=== PATIENT | female | born 1960 | race Caucasian/White ===

== ENCOUNTER 2022-11-09 12:30 | Inpatient (IN) | payer OTHER, SELFPAY ==
[2022-11-09] VITALS (18 sets, daily range): BP systolic 99–136; BP diastolic 43–70; PULSE 72–104; RESP 14–22; TEMP 36.2–36.8; O2SAT 97–100; BMI 19.3; BMI 23.1
--- NOTE | 2022-11-09 12:56 | EKG12_ITS ---
Test Reason : REPEAT CP Blood Pressure : / mmHG Vent. Rate : 085 BPM Atrial Rate : 085 BPM P-R Int : 126 ms QRS Dur : 078 ms QT Int : 354 ms P-R-T Axes : 073 063 055 degrees QTc Int : 421 ms Normal sinus rhythm Septal infarct , age undetermined Abnormal ECG Confirmed by UDAY MENDEZ, JULIANE ([id number]), technical writer and editor GELA ROSE ([id number]) on 11/10/2022 10:01:15 AM Referred By: Confirmed By:JULIANE FRYE MD
--- NOTE | 2022-11-09 12:59 | ED.VIS.CHEST ---
HPI <BRANDON Valdivia - Last Filed: 11/09/22 16:34> History of Present Illness Chief Complaint: Chest Pain Narrative Narrative: Patient presenting today with chest discomfort that she describes as a squeezing sensation that she has had intermittently for the past 2 months. She reports that the discomfort is brought on with exertion and she feels she does not have to walk very far before the discomfort begins. She will also feel short of breath when it occurs. She has not seen her PCP for this issue and has not had any recent cardiac work-ups. She reports a history of a known heart murmur. She had a syncopal episode 2 weeks ago while she was sitting in the kitchen making her son's lunch and does not think that she had any chest pain prior to that event. She called her PCP and he encouraged her to come into the ED, but she waited until today to do this. She reports that the discomfort will occasionally happen at rest but she attributes this to when she is feeling stressed. Both her brother and sister have had heart attacks in their 40s and 50s. PMH includes hyperlipidemia for which she is not on medication for. She denies a history of blood clots, recent surgery/procedures, recent immobilization. PFSH <BRANDON Valdivia - Last Filed: 11/09/22 16:34> PFSH Medical History Hyperlipidemia Murmur Home Medications capsicum (cayenne) 447 mg capsule 475 mg PO DAILY SUPPLEMENT 11/09/22 [History Last Taken 11/09/22] chlorophyll copper complex 10 mg tablet 40 mg PO BID 11/09/22 [History Last Taken 11/09/22] multivitamin (Daily Multi-Vitamin tablet) 1 tab PO DAILY HEALTH MAINTENANCE 11/09/22 [History Last Taken 11/09/22] omega-3 fatty acids-fish oil 684 mg-1,200 mg capsule,delayed release 1 cap PO DAILY SUPPLEMENT 11/09/22 [History Last Taken 11/09/22] Allergy/AdvReac Type Severity Reaction Status Date / Time No Known Allergies Allergy Verified 11/09/22 12:32 Social History household members: spouse and children housing: house Smoking Status: Never smoker ROS <BRANDON Valdivia - Last Filed: 11/09/22 16:34> ROS ED Constitutional Constitutional ED: Denies chills or fever(s) Eyes Eyes: Denies change in vision Cardiovascular Cardiovascular: Reports chest pain; Denies palpitations Respiratory/Chest Respiratory/Chest: Reports dyspnea on exertion; Denies cough or dyspnea Gastrointestinal Gastrointestinal: Denies abdominal pain, constipation, diarrhea, nausea or vomiting Genitourinary Genitourinary ED: Denies dysuria, hematuria or urinary urgency Musculoskeletal Musculoskeletal: Denies arthralgias or myalgias Integumentary Denies abscess, Abrasions or rash Neurologic Neurologic: Denies dizziness, paresthesias or weakness Psychiatric Psychiatric: Reports anxiety; Denies depression, suicidal ideation or suicidal thoughts Allergic/Immunologic Allergic/Immunologic ED: Denies lip swelling, mouth swelling or urticaria EXAM <BRANDON Valdivia - Last Filed: 11/09/22 16:34> Physical Exam Const Vital Signs: 11/09/22 12:31 11/09/22 12:48 11/09/22 13:24 Temperature 97.3 F L Temperature Source Temporal Pulse Rate 99 92 Respiratory Rate 14 20 H Respiratory Effort Normal Respiratory Depth Respiratory Pattern Blood Pressure 123/70 H Blood Pressure Mean 87 Blood Pressure Source Blood Pressure Position Blood Pressure Location Pulse Ox 100 99 Oxygen Delivery Method 11/09/22 13:30 11/09/22 13:40 11/09/22 13:45 Temperature Temperature Source Pulse Rate 90 81 104 H Respiratory Rate 22 H 19 H 19 H Respiratory Effort Respiratory Depth Respiratory Pattern Blood Pressure 117/45 L 124/61 H Blood Pressure Mean 64 81 Blood Pressure Source Blood Pressure Position Blood Pressure Location Pulse Ox 99 98 97 Oxygen Delivery Method 11/09/22 13:50 11/09/22 14:00 11/09/22 14:13 Temperature Temperature Source Pulse Rate 94 84 99 Respiratory Rate 17 18 18 Respiratory Effort Respiratory Depth Respiratory Pattern Blood Pressure 115/43 L 115/43 L Blood Pressure Mean 65 67 Blood Pressure Source Blood Pressure Position Blood Pressure Location Pulse Ox 99 100 100 Oxygen Delivery Method Room Air 11/09/22 15:33 11/09/22 16:55 11/09/22 17:10 Temperature 97.3 F L 97.2 F L Temperature Source Temporal Temporal Pulse Rate 88 87 91 Respiratory Rate 18 16 16 Respiratory Effort Respiratory Depth Respiratory Pattern Blood Pressure 136/63 H 117/44 L 112/54 L Blood Pressure Mean 87 68 73 Blood Pressure Source Monitor Monitor Blood Pressure Position Semi-Fowlers Semi-Fowlers Blood Pressure Location Left Arm Left Arm Pulse Ox 99 100 100 Oxygen Delivery Method Room Air Room Air Room Air 11/09/22 17:35 11/09/22 17:25 11/09/22 17:40 Temperature Temperature Source Pulse Rate 85 72 Respiratory Rate 16 16 Respiratory Effort Normal Non-Labored Respiratory Depth Normal Respiratory Pattern Normal Blood Pressure 107/47 L 107/44 L Blood Pressure Mean 67 65 Blood Pressure Source Monitor Monitor Blood Pressure Position Semi-Fowlers Semi-Fowlers Blood Pressure Location Left Arm Left Arm Pulse Ox 100 97 Oxygen Delivery Method Room Air Room Air Room Air Positive well nourished, well developed and no apparent distress General Appearance ED: well developed HEENT Reports normocephalic and head/scalp atraumatic Mouth ED: Yes moist mucous membranes normal Eyes PERRL and EOMs intact bilaterally Neck full ROM and supple Chest Wall inspection of chest normal Resp normal respiratory effort and clear to auscultation bilaterally Cardio regular rate and regular rhythm GI soft to palpation, non-tender, non-distended and no masses Back/Spine normal ROM and normal to inspection Extremity normal to inspection and full ROM Neuro oriented x3, CN's II-XII intact bilaterally, moves all extremities, no focal motor deficits and no sensory deficits noted Sensorium / Orientation: awake and alert Psych mental status grossly normal and thought process normal Skin no rashes or lesions noted and no wounds <Dr. Natalie Amaya, DO - Last Filed: 11/09/22 22:21> Physical Exam Const Vital Signs: 11/09/22 12:31 11/09/22 12:48 11/09/22 13:24 Temperature 97.3 F L Temperature Source Temporal Pulse Rate 99 92 Respiratory Rate 14 20 H Respiratory Effort Normal Respiratory Depth Respiratory Pattern Blood Pressure 123/70 H Blood Pressure Mean 87 Blood Pressure Source Blood Pressure Position Blood Pressure Location Pulse Ox 100 99 Oxygen Delivery Method 11/09/22 13:30 11/09/22 13:40 11/09/22 13:45 Temperature Temperature Source Pulse Rate 90 81 104 H Respiratory Rate 22 H 19 H 19 H Respiratory Effort Respiratory Depth Respiratory Pattern Blood Pressure 117/45 L 124/61 H Blood Pressure Mean 64 81 Blood Pressure Source Blood Pressure Position Blood Pressure Location Pulse Ox 99 98 97 Oxygen Delivery Method 11/09/22 13:50 11/09/22 14:00 11/09/22 14:13 Temperature Temperature Source Pulse Rate 94 84 99 Respiratory Rate 17 18 18 Respiratory Effort Respiratory Depth Respiratory Pattern Blood Pressure 115/43 L 115/43 L Blood Pressure Mean 65 67 Blood Pressure Source Blood Pressure Position Blood Pressure Location Pulse Ox 99 100 100 Oxygen Delivery Method Room Air 11/09/22 15:33 11/09/22 16:55 11/09/22 17:10 Temperature 97.3 F L 97.2 F L Temperature Source Temporal Temporal Pulse Rate 88 87 91 Respiratory Rate 18 16 16 Respiratory Effort Respiratory Depth Respiratory Pattern Blood Pressure 136/63 H 117/44 L 112/54 L Blood Pressure Mean 87 68 73 Blood Pressure Source Monitor Monitor Blood Pressure Position Semi-Fowlers Semi-Fowlers Blood Pressure Location Left Arm Left Arm Pulse Ox 99 100 100 Oxygen Delivery Method Room Air Room Air Room Air 11/09/22 17:35 11/09/22 17:25 11/09/22 17:40 Temperature Temperature Source Pulse Rate 85 72 Respiratory Rate 16 16 Respiratory Effort Normal Non-Labored Respiratory Depth Normal Respiratory Pattern Normal Blood Pressure 107/47 L 107/44 L Blood Pressure Mean 67 65 Blood Pressure Source Monitor Monitor Blood Pressure Position Semi-Fowlers Semi-Fowlers Blood Pressure Location Left Arm Left Arm Pulse Ox 100 97 Oxygen Delivery Method Room Air Room Air Room Air [facility] <BRANDON Valdivia - Last Filed: 11/09/22 16:34> [facility] Narrative Medical decision making narrative: Patient presenting today due to unstable angina that she has had for the past 2 months. She did report that while walking into the ED from the parking lot she had chest tightness but attributes that to her anxiety. She is well-appearing and in no acute distress. Vitals are unremarkable. Her history is very concerning and she has significant family history of coronary artery disease. I did order aspirin for patient but she declines this, stating that she takes cayenne pepper supplements and that will thin her blood. Labs will be obtained to rule out leukocytosis, anemia, electrolyte abnormality, and ACS. Patient does have an elevated troponin, EKG does not show ST elevation but does show signs of cardiac ischemia inferiorly. Attending physician was able to talk patient into taking aspirin, heparin was ordered for patient but she refuses to take this. Dr. Nelson was consulted and evaluated patient. He reports that she is willing to have a heart catheterization but does not want any stent placement at this time. She will be taken for this procedure today in stable condition and is comfortable with plan. Lab Data Attestation: I reviewed the patient's lab results. Labs: Laboratory Results - last 24 hr 11/09/22 12:56 WBC 6.3 RBC 4.10 L Hgb 12.4 Hct 37.9 MCV 92.4 MCH 30.2 MCHC 32.7 RDW Std Deviation 46.2 H RDW Coeff of Britta 13.8 Plt Count 108 L MPV 14.7 H Immature Gran % (Auto) 0.200 Neut % (Auto) 70.9 H Lymph % (Auto) 17.7 L [place] % (Auto) 9.7 Eos % (Auto) 1.0 Baso % (Auto) 0.5 Absolute Neuts (auto) 4.4 Absolute Lymphs (auto) 1.11 Nucleated RBC % 0 PT 13.4 INR 1.0 APTT 32.5 Sodium 133 L Potassium 3.7 Chloride 98 Carbon Dioxide 30.0 Anion Gap 5 BUN 13 Creatinine 0.68 Estim Creat Clear Calc 59.72 Est GFR (MDRD) Af Amer 113 Est GFR (MDRD) Non-Af 93 BUN/Creatinine Ratio 19.1 Glucose 119 H Calcium 9.2 Troponin I High Sens 420 H* Radiography X-Ray: Read by ED Physician and Read by Radiologist Diagnostic Testing: Clinical Impression(s) from Imaging Studies Chest X-Ray 11/09/22 13:14 IMPRESSION: Minimal degree of dextroscoliosis. Electronically Signed: Kendall Larkin MD at 13:25 EDT , EKG Initial EKG: Comments: 98 bpm, normal sinus rhythm with signs of cardiac ischemia laterally, no ST elevation, reviewed and interpreted by attending ED physician Repeat EKG is unchanged Prior: No Prior <Dr. Natalie Amaya, DO - Last Filed: 11/09/22 22:21> MDM MDM Narrative Medical decision making narrative: Patient presenting today due to unstable angina that she has had for the past 2 months. She did report that while walking into the ED from the parking lot she had chest tightness but attributes that to her anxiety. She is well-appearing and in no acute distress. Vitals are unremarkable. Her history is very concerning and she has significant family history of coronary artery disease. I did order aspirin for patient but she declines this, stating that she takes cayenne pepper supplements and that will thin her blood. Labs will be obtained to rule out leukocytosis, anemia, electrolyte abnormality, and ACS. Patient does have an elevated troponin, EKG does not show ST elevation but does show signs of cardiac ischemia inferiorly. Attending physician was able to talk patient into taking aspirin, heparin was ordered for patient but she refuses to take this. Dr. Nelson was consulted and evaluated patient. He reports that she is willing to have a heart catheterization but does not want any stent placement at this time. She will be taken for this procedure today in stable condition and is comfortable with plan. I have personally performed a face to face assessment of the patient and have reviewed the SHARON Note. I performed a substantive portion of the visit including all aspects of the following. My christine findings include: History is patient is 62-year-old female with recent history of exertional chest pain, mild shortness of breath, syncopal episode 2 weeks ago and now increased chest pain today. Vital signs are normal. Her HPI is highly concerning for unstable angina. On top of that she has a significant family history of coronary artery disease and cardiac even at a young age. EKG does show subtle ST depressions in the inferior leads as well as biphasic T wave abnormalities in V1 and V2, this is concerning for possible multivessel disease. This is not a STEMI. High since he troponin is elevated at 420. Patient is refusing aspirin stating that she does not want to thin her blood too much as she already takes cayenne pepper. Discussed at length with patient that her blood is not too thin and that aspirin can be lifesaving in this scenario. I also explained to her that she is has findings concerning for coronary artery disease/significant narrowing of her coronary artery vessels and she needs blood thinners and likely a cardiac catheterization with stents. Patient states she does not want stents in her body as its not natural and she does not want to take any medicines. Patient counseled that if we do not adequately treat this heart condition there is a chance that she could go on to cardiogenic shock and ultimately from heart failure. She is agreeable now with at least a cardiac catheterization and intraprocedure heparin but still does not want a stent. Is evaluated by Dr. Nelson who also tried to explain the same to the patient. Patient is otherwise acting appropriate at this time I do think to has capacity to make these decisions. Other additions or changes: [None] Lab Data Labs: Laboratory Results - last 24 hr 11/09/22 12:56 WBC 6.3 RBC 4.10 L Hgb 12.4 Hct 37.9 MCV 92.4 MCH 30.2 MCHC 32.7 RDW Std Deviation 46.2 H RDW Coeff of Britta 13.8 Plt Count 108 L MPV 14.7 H Immature Gran % (Auto) 0.200 Neut % (Auto) 70.9 H Lymph % (Auto) 17.7 L [place] % (Auto) 9.7 Eos % (Auto) 1.0 Baso % (Auto) 0.5 Absolute Neuts (auto) 4.4 Absolute Lymphs (auto) 1.11 Nucleated RBC % 0 PT 13.4 INR 1.0 APTT 32.5 Sodium 133 L Potassium 3.7 Chloride 98 Carbon Dioxide 30.0 Anion Gap 5 BUN 13 Creatinine 0.68 Estim Creat Clear Calc 59.72 Est GFR (MDRD) Af Amer 113 Est GFR (MDRD) Non-Af 93 BUN/Creatinine Ratio 19.1 Glucose 119 H Calcium 9.2 Troponin I High Sens 420 H* Radiography Diagnostic Testing: Clinical Impression(s) from Imaging Studies Chest X-Ray 11/09/22 13:14 IMPRESSION: Minimal degree of dextroscoliosis. Electronically Signed: Kendall Larkin MD at 13:25 EDT , <Dr. Natalie Amaya, DO - Last Filed: 11/09/22 22:21> Critical Care Time Critical Care Time: Yes Critical care time (excluding procedures): 30-74 minutes (40), Discussing w/Patient &/or Family/Rn Obgyn, Discussing w/Consultants and Arranging Admission or Transfer Discharge Plan Dx/Rx/DC Orders Clinical Impression: Dyslipidemia, Unstable angina, Non-STEMI (non-ST elevated myocardial infarction) Disposition Disposition: Acute Care Hospital [facility] Discharge Date/Time: 11/09/22 15:35
--- NOTE | 2022-11-09 13:14 | RAD_ITS ---
STUDY: X-RAY CHEST REASON FOR EXAM: Female, 62 years old. 2 month history of chest pressure. TECHNIQUE: Single AP portable view of the chest. COMPARISON: None. FINDINGS: EKG electrodes are seen. The lungs are clear and expanded. There is no demonstrated pleural abnormality. Normal size heart. Normal mediastinum and lynn. Normal visualized pulmonary arteries. There is atherosclerotic calcification of the aortic arch with tortuosity. Minimal degree of dextroscoliosis. Normal visualized ribs, clavicles, and shoulders. There is no demonstrated abnormality of the visualized soft tissue structures of the upper abdomen. RAD/Chest 1 View (Portable) IMPRESSION: Minimal degree of dextroscoliosis. Electronically Signed: Kendall Larkin MD at 13:25 EDT ,
[2022-11-09 13:21] LABS: Absolute Lymphocyte Count 1.11 X10^3/uL (0.83-4.51); Absolute Neutrophil Count 4.4 X10^3/uL (2.0-7.7); Basophil# 0.03 X10^3/uL; Basophil% 0.5 % (0-1); Eosinophil# 0.06 X10^3/uL; Hematocrit 37.9 % (37-47); Hemoglobin 12.4 g/dL (12.0-15.0); Lymphocyte # 1.11 X10^3/ul (0.83-4.51); Lymphocyte % 17.7 % (19-41); Mean Corp Hgb Conc 32.7 g/dL (32-36); Mean Corpuscular Hgb 30.2 pg (27.0-32.0); Mean Corpuscular Volume 92.4 fL (81-99); Mean Platelet Vol. 14.7 fl (6.2-12.0); Monocyte# 0.61 X10^3/uL; Monocyte% 9.7 % (0-10); NRBC Flagged by Analyzer 0 % (0-5); Neutrophil # 4.44 X10^3/uL (2.7-7.7); Neutrophil % 70.9 % (47-70); POSITIVE MORPHOLOGY YES; Platelet Count 108 K/mm3 (150-450); RBC Distribution Width CV 13.8 % (11.6-14.6); RBC Distribution Width SD 46.2 fl (35.1-43.9); White Blood Count 6.3 K/mm3 (4.4-11.0)
[2022-11-09 13:37] LABS: Differential Indicated SCAN CRITERIA MET
[2022-11-09 13:48] LABS: Anion Gap 5 (5-15); BUN 13 mg/dL (7-18); BUN/Creat Ratio 19.1 RATIO (10-20); Calcium,Total 9.2 mg/dL (8.5-10.1); Chloride 98 mmol/L (98-107); Creatinine, Serum 0.68 mg/dL (0.55-1.02); EST Glomerular Filtration Rate 93 mL/min (>60); Est Glom Filt Rate - Afr Amer 113 mL/min (>60); Estimated Creatinine Clearance 59.72 ml/min; Glucose 119 mg/dL (74-106); Potassium 3.7 mmol/L (3.5-5.1); Sodium Level 133 mmol/L (136-145); Troponin-I HS (w/2H Reflex) 420 pg/mL (3.0-54.0)
--- NOTE | 2022-11-09 13:52 | EKG12_ITS ---
Test Reason : CP Blood Pressure : / mmHG Vent. Rate : 098 BPM Atrial Rate : 098 BPM P-R Int : 124 ms QRS Dur : 074 ms QT Int : 342 ms P-R-T Axes : 071 060 057 degrees QTc Int : 436 ms Normal sinus rhythm Septal infarct , age undetermined Abnormal ECG Confirmed by UDAY MENDEZ, JULIANE ([id number]), social media editor GELA ROSE ([id number]) on 11/10/2022 10:01:29 AM Referred By: Confirmed By:JULIANE FRYE MD
[2022-11-09 14:32] LABS: Prothrombin Time (Protime)PT. 13.4 SECONDS (11.7-14.9)
[2022-11-09 14:33] LABS: Partial Thromboplast Time 32.5 Seconds (24.1-36.2)
[2022-11-09] MEDS: Aspirin 81 MG TAB.CHEW 324 MG PO (14:40)
--- NOTE | 2022-11-09 15:07 | ED.RN ---
Dr. Amaya, Dr. Nelson, and this RN discussed with patient plan of care. support provided. Pt decided to take aspirin but is refusing the heparin gtt. Both physicians aware.
[2022-11-09 15:12] LABS: Reflex Troponin-HS? (from REC) Y
--- NOTE | 2022-11-09 15:47 | CON.PCM.CA_ITS ---
Assessment & Plan Assessment/Plan (1) Non-STEMI (non-ST elevated myocardial infarction): PLAN: We will keep the patient on aspirin. We will proceed with coronary angiography. Patient understood the risks and benefits of coronary angiography but wants to discuss options before proceeding with PCI once the angiography is done. I did explain to the patient that if she agrees to proceed with PCI she will have to be on dual antiplatelet therapy for a minimum of 1 year. I also explained to her that she needs to be on a beta-maira and a statin as well. Rest of the management will be based on angiography findings. (2) Dyslipidemia: HPI Consult Data Date of Consult: 11/09/22 HPI Narrative Reason for Consultation: Non-STEMI HPI Narrative: YVETTE OMALLEY, is a 62 F who presents with chest pain. Chest pain is retrosternal, pressure-like, exertional. Patient has been having this on and off for the last 2 months. About 2 weeks back she had a syncopal episode. She apparently called her primary care physician's office and was advised to come to the emergency room. She has significant family history of coronary artery disease. She has history of dyslipidemia with current LDL of 289. She is skeptical of medications and initially refused aspirin even though she presented with non-STEMI. She finally agreed to take aspirin but so far has refused hepa rin. Review of systems: All systems reviewed. All else is negative except that in HPI [facility] Medical History Hyperlipidemia Murmur Home Medications capsicum (cayenne) 447 mg capsule 475 mg PO DAILY SUPPLEMENT 11/09/22 [History Last Taken 11/09/22] chlorophyll copper complex 10 mg tablet 40 mg PO BID 11/09/22 [History Last Taken 11/09/22] multivitamin (Daily Multi-Vitamin tablet) 1 tab PO DAILY HEALTH MAINTENANCE 11/09/22 [History Last Taken 11/09/22] omega-3 fatty acids-fish oil 684 mg-1,200 mg capsule,delayed release 1 cap PO DAILY SUPPLEMENT 11/09/22 [History Last Taken 11/09/22] Allergy/AdvReac Type Severity Reaction Status Date / Time No Known Allergies Allergy Verified 11/09/22 12:32 Social History Smoking Status: Never smoker Physical Exam Const alert and oriented x3 HEENT normocephalic Eyes no scleral icterus Resp normal respiratory effort Cardio regular rate Skin no rashes or lesions noted Risk Stratification Risk Stratification Applicable: No Objective Data Vital Signs: Vital Signs Temp Pulse Resp BP Pulse Ox O2 Del Method 97.3 F L 88 18 136/63 H 99 Room Air 11/09/22 15:33 11/09/22 15:33 11/09/22 15:33 11/09/22 15:33 11/09/22 15:33 11/09/22 15:33 Oxygen Delivery Method Room Air Weight: 96 lb Body Mass Index (BMI) 19.3 Lab / Micro Data 11/09/22 12:56 11/09/22 12:56 Labs: Laboratory Results - last 24 hr 11/09/22 12:56: WBC 6.3, RBC 4.10 L, Hgb 12.4, Hct 37.9, MCV 92.4, MCH 30.2, MCHC 32.7, RDW Std Deviation 46.2 H, RDW Coeff of Britta 13.8, Plt Count 108 L, MPV 14.7 H, Immature Gran % (Auto) 0.200, Neut % (Auto) 70.9 H, Lymph % (Auto) 17.7 L, [place] % (Auto) 9.7, Eos % (Auto) 1.0, Baso % (Auto) 0.5, Absolute Neuts (auto) 4.4, Absolute Lymphs (auto) 1.11, Nucleated RBC % 0, PT 13.4, INR 1.0, APTT 32.5, Sodium 133 L, Potassium 3.7, Chloride 98, Carbon Dioxide 30.0, Anion Gap 5, BUN 13, Creatinine 0.68, Estim Creat Clear Calc 59.72, Est GFR (MDRD) Af Amer 113, Est GFR (MDRD) Non-Af 93, BUN/Creatinine Ratio 19.1, Glucose 119 H, Calcium 9.2, Troponin I High Sens 420 H* Cardiology Labs/Tests 11/09/22 12:56: WBC 6.3, RBC 4.10 L, Hgb 12.4, Hct 37.9, MCV 92.4, MCH 30.2, MCHC 32.7, Plt Count 108 L, MPV 14.7 H, Immature Gran % (Auto) 0.200, Neut % (Auto) 70.9 H, Lymph % (Auto) 17.7 L, [place] % (Auto) 9.7, Eos % (Auto) 1.0, Baso % (Auto) 0.5, Absolute Neuts (auto) 4.4, Nucleated RBC % 0, PT 13.4, INR 1.0, APTT 32.5, Sodium 133 L, Potassium 3.7, Chloride 98, Carbon Dioxide 30.0, Anion Gap 5, BUN 13, Creatinine 0.68, Est GFR (MDRD) Af Amer 113, Est GFR (MDRD) Non- Af 93, BUN/Creatinine Ratio 19.1, Glucose 119 H, Calcium 9.2 Rhythm: EKG: ECHO: Stress Test: Cardiac Cath: PCI: CT Surgery: Holter monitor: EPS: PPM: CXR: Chest CT Scan: Radiography Diagnostic Testing: Radiology Impression Chest X-Ray 11/09/22 13:14 IMPRESSION: Minimal degree of dextroscoliosis. Electronically Signed: Kendall Larkin MD at 13:25 EDT ,
--- NOTE | 2022-11-09 17:15 | CL.D_ITS ---
Patient Name: YVETTE OMALLEY Study Date: 11/09/2022 Performing: Gil Nelson MD Ht: 59 inches 149.86 cm : 1960 Wt: 96.1 lbs 43.54 kg Age: 62 Gender: female BSA: 1.35 PROCEDURE(S) PERFORMED [id number])[facility] CLINICAL PROFILE AND INDICATIONS Indications: ACS <= 24 hrs Heart Failure: None Stress/Imaging Stress/Image Study Performed: No CAD Presentations: Non-STEMI. Symptom onset Date/Time: Time Not Available CONCLUSIONS Severe multivessel coronary artery disease as described. Elevated LVEDP. No significant aortic stenosis. RECOMMENDATIONS Heart team approach to discuss CABG plus or minus AVR versus PCI of the LAD alone. DESCRIPTION OF PROCEDURE The patient arrived to the procedure lab. The risks and benefits of the procedure as well as a full description of our services here and current unavailability of surgical backup were fully explained to the patient and/or their significant other prior to the catheterization. The Timeout was completed, verifying the correct patient and procedure. The patient's procedural site was prepped and draped in the usual fashion. Local anesthetic was given subcutaneously to right radial region with Lidocaine 2%. Using a modified Seldinger technique, arterial access was obtained via the right radial artery, a 6Fr sheath was inserted. Left Coronary Artery selective angiography was performed in multiple views using a 5 Fr. JL3.5 catheter. Right Coronary Artery selective angiography was then performed in multiple views using a 5 Fr. JR 4 catheter. LV to AO pullback pressures were then recorded.The arterial sheath was pulled and a TR Band was applied for hemostasis CORONARY ANGIOGRAPHY DOMINANCE: Right Dominant LEFT HEART ASSESSMENT Patient was not given any sedation as she wanted to discuss angiography findings prior to proceeding with any revascularization. Patient's angiographic findings were discussed with the patient in detail. Patient did not want us to proceed with PCI at this time. She wants to think about whether it is okay for us to transfer her to a facility with CT surgery availability as well. At this point she is very hesitant to restart heparin after the TR band is off as well. Explained the risks and benefits of all the approaches to the patient and family and they understand. LEFT MAIN: 20 % distal Stenosis LEFT ANTERIOR DESCENDING ARTERY: OSTIAL LAD: 99 % Stenosis. DENNIS 1-2 flow in the LAD CIRCUMFLEX ARTERY: MID CIRC: 60-70 % Stenosis OM 1: Proximal - 40 % Stenosis RIGHT CORONARY ARTERY: Severe diffuse disease in the mid and proximal portion. Occluded in the distal portion. Well developed [id number] collaterals noted. VALVE FINDINGS: No Aortic Valve Stenosis COMPLICATIONS No Complications PROCEDURE MEDICATIONS Oxygen: 2 L/min via nasal cannula SUMMARY OF HEMODYNAMIC DATA Time AIR REST ECG 15:50:22 AO 150/49 (47) SA 16:07:07 LV 122/2, 31 16:15:51 LV 124/1, 30 16:15:58 LVp 127/0, 29 16:16:12 AOp 121/47 (77) 16:16:17 Signed By Gil Nelson MD On 11/09/2022 17:14:23 Gil Nelson MD
[2022-11-09] MEDS: 0.9% Normal Saline 1,000 ML 50 ML IV (17:34)
--- NOTE | 2022-11-09 18:22 | PCM.HP.STD ---
[facility] - General General Date of Admission: 11/09/22 Date of Service: 11/09/22 Chief Complaint: Chest pain anginal quality on exertion for 2 months along with shortness of breath. Longtime murmur. HPI Narrative YVETTE OMALLEY, is a 62 F came to ED for chest discomfort/tightness mainly exertional for past 2 months. She states she feels a squeezing sensation anteriorly on walking less than a block which goes away after rest. She denies any radiation to arm neck back but she also feels tightness at epigastric region. She denies dizziness or lightheadedness. She also passed out, syncopal episode about 2 weeks ago while she was sitting in the kitchen making her son's lunch. She was not doing any exertional at that time. She called her PCP and asked her to go to ED. She also has history of murmur for more than 10 years and states it is getting tighter and tighter. She had a stress test more than 10 years ago when she was getting easily fatigued but no chest pain at that time. Stress test was normal at that time. Vitals in the ED reviewed. BP in normal range but heart rate in 90s to low 100s. No hypoxia. Twelve-lead EKG done in ED showed 98 bpm, with T inversion in V1 to V3 leads slight ST depression but no ST elevation. First troponin was high of 120 therefore admitted with a diagnosis of non-STEMI and aspirin 324 mg and started on IV heparin drip Past medical history: Dyslipidemia: Not on medication. Family history: Brother and sister have CO/heart attack in their 40s and 50s. FORMERLY [facility], [facility] Medical History Hyperlipidemia Murmur Home Medications capsicum (cayenne) 447 mg capsule 475 mg PO DAILY SUPPLEMENT 11/09/22 [History Last Taken 11/09/22] chlorophyll copper complex 10 mg tablet 40 mg PO BID 11/09/22 [History Last Taken 11/09/22] multivitamin (Daily Multi-Vitamin tablet) 1 tab PO DAILY HEALTH MAINTENANCE 11/09/22 [History Last Taken 11/09/22] omega-3 fatty acids-fish oil 684 mg-1,200 mg capsule,delayed release 1 cap PO DAILY SUPPLEMENT 11/09/22 [History Last Taken 11/09/22] Allergy/AdvReac Type Severity Reaction Status Date / Time No Known Allergies Allergy Verified 11/09/22 12:32 Social History household members: spouse and children housing: house Smoking Status: Never smoker ROS ROS Narrative Constitutional: Reports chronic fatigue and weakness mainly exertional. No fever. HEENT: Reports systems reviewed and no addt'l complaints, except as documented Respiratory/Chest: As described in HPI CVS: As described in HPI Gastrointestinal: Denies coffee ground emesis, hematemesis or vomiting Genitourinary: Denies burning urination or new urinary tract symptoms Musculoskeletal: Denies acute joint pain or limited range of motion. No acute injury Neurologic: Denies seizure-like symptoms. No acute strokelike symptoms. skin: No ulcer. No rash Endocrinology: Reports systems reviewed and no addt'l complaints, except as documented Hematologic/Lymphatic: Reports systems reviewed and no addt'l complaints, except as documented Rest 14 ROS are negative except as mentioned in HPI Vital Signs Vital Signs Vital Signs: 11/09/22 12:31 11/09/22 12:48 11/09/22 13:24 Temperature 97.3 F L Temperature Source Temporal Pulse Rate 99 92 Respiratory Rate 14 20 H Respiratory Effort Normal Respiratory Depth Respiratory Pattern Blood Pressure 123/70 H Blood Pressure Mean 87 Blood Pressure Source Blood Pressure Position Blood Pressure Location Pulse Ox 100 99 Oxygen Delivery Method 11/09/22 13:30 11/09/22 13:40 11/09/22 13:45 Temperature Temperature Source Pulse Rate 90 81 104 H Respiratory Rate 22 H 19 H 19 H Respiratory Effort Respiratory Depth Respiratory Pattern Blood Pressure 117/45 L 124/61 H Blood Pressure Mean 64 81 Blood Pressure Source Blood Pressure Position Blood Pressure Location Pulse Ox 99 98 97 Oxygen Delivery Method 11/09/22 13:50 11/09/22 14:00 11/09/22 14:13 Temperature Temperature Source Pulse Rate 94 84 99 Respiratory Rate 17 18 18 Respiratory Effort Respiratory Depth Respiratory Pattern Blood Pressure 115/43 L 115/43 L Blood Pressure Mean 65 67 Blood Pressure Source Blood Pressure Position Blood Pressure Location Pulse Ox 99 100 100 Oxygen Delivery Method Room Air 11/09/22 15:33 11/09/22 16:55 11/09/22 17:10 Temperature 97.3 F L 97.2 F L Temperature Source Temporal Temporal Pulse Rate 88 87 91 Respiratory Rate 18 16 16 Respiratory Effort Respiratory Depth Respiratory Pattern Blood Pressure 136/63 H 117/44 L 112/54 L Blood Pressure Mean 87 68 73 Blood Pressure Source Monitor Monitor Blood Pressure Position Semi-Fowlers Semi-Fowlers Blood Pressure Location Left Arm Left Arm Pulse Ox 99 100 100 Oxygen Delivery Method Room Air Room Air Room Air 11/09/22 17:35 11/09/22 17:25 11/09/22 17:40 Temperature Temperature Source Pulse Rate 85 72 Respiratory Rate 16 16 Respiratory Effort Normal Non-Labored Respiratory Depth Normal Respiratory Pattern Normal Blood Pressure 107/47 L 107/44 L Blood Pressure Mean 67 65 Blood Pressure Source Monitor Monitor Blood Pressure Position Semi-Fowlers Semi-Fowlers Blood Pressure Location Left Arm Left Arm Pulse Ox 100 97 Oxygen Delivery Method Room Air Room Air Room Air Weight Weight: 103 lb 3.2 oz Body Mass Index (BMI) 23.1 Physical Exam Narrative General: Alert, Oriented x3, Cooperative. BMI 23.1 kg/m? HEENT: Atraumatic, PERRLA, EOMI, Normocephalic Oral: Oral mucosa moist. No Gingival or Mucosal Lesions/ Ulcerations Neck: Supple, No JVD, Negative Carotid Bruits Lungs: Air entry diminished in bilateral lung bases. No crepitation/rhonchi Cardiovascular: Regular rate, Regular Rhythm, Normal S1, Normal S2, ejection systolic murmur grade 4/6 with radiation to carotids, aortic stenosis Abdomen: Bowel Sounds Present, Soft, Non Tender, Non-Distended : No renal angle tenderness. No suprapubic tenderness. Extremities: No edema, Capillary Refill Less than 3 Seconds Skin: Right radial artery cardiac cath access site. No hematoma or bruise. Musculoskeletal: No Tenderness to Palpation of Joints or Extremities. Muscle strength 5/5 at major joints. Neurological: Cranial nerves II-XII grossly intact, DTR 2+/4. No acute focal neurological deficit. Psych/Mental Status: Normal Affect, Appropriate. Results Lab / Micro Data 11/09/22 12:56 11/09/22 12:56 Labs: Laboratory Results - last 24 hr 11/09/22 12:56: WBC 6.3, RBC 4.10 L, Hgb 12.4, Hct 37.9, MCV 92.4, MCH 30.2, MCHC 32.7, RDW Std Deviation 46.2 H, RDW Coeff of Britta 13.8, Plt Count 108 L, MPV 14.7 H, Immature Gran % (Auto) 0.200, Neut % (Auto) 70.9 H, Lymph % (Auto) 17.7 L, [place] % (Auto) 9.7, Eos % (Auto) 1.0, Baso % (Auto) 0.5, Absolute Neuts (auto) 4.4, Absolute Lymphs (auto) 1.11, Nucleated RBC % 0, PT 13.4, INR 1.0, APTT 32.5, Sodium 133 L, Potassium 3.7, Chloride 98, Carbon Dioxide 30.0, Anion Gap 5, BUN 13, Creatinine 0.68, Estim Creat Clear Calc 59.72, Est GFR (MDRD) Af Amer 113, Est GFR (MDRD) Non-Af 93, BUN/Creatinine Ratio 19.1, Glucose 119 H, Calcium 9.2, Troponin I High Sens 420 H* Radiology Impression Chest X-Ray 11/09/22 13:14 IMPRESSION: Minimal degree of dextroscoliosis. Electronically Signed: Kendall Larkin MD at 13:25 EDT , Assessment & Plan Assessment/Plan (1) Non-STEMI (non-ST elevated myocardial infarction): PLAN: Plan 1. Non-STEMI: Patient is being admitted in PCU. Patient was taken to [facility] after ED physician consulted commercial plumber Dr. Nelson. Started on IV heparin drip and had aspirin 324 mg in ED. Diagnostic cath was done and reported ostial LAD 99% stenosis DENNIS I-II flow in LAD. Mid circumflex 60 to 70%, OM1 proximal 40% stenosis. Left main 20% distal stenosis. RCA severe diffuse disease in mid and proximal portion, occluded in the distal portion. Well-developed [id number] collaterals. Discussed with the commercial plumber. Continue baby aspirin, low-dose metoprolol 12.5 mg twice daily and IV heparin drip. High intensity statin. Repeat EKG shows normal sinus rhythm T inversion V1 to V3 with slight ST depression. Second troponin is 848 but it was after cath. Cycle cardiac enzymes. Fasting profile and TSH tomorrow AM. 2. chronic aortic stenosis on exam: 2D echo ordered for tomorrow a.m. to evaluate, assess severity of aortic stenosis. 3. Dyslipidemia: On atorvastatin 80 mg daily 80s. 4. Hyperglycemia glucose is 119: A1c tomorrow AM. She does not have diagnosis of diabetes mellitus. VTE prophylaxis: Patient on IV heparin drip. Living will/advanced directive/end of life care: Patient does not have living will or advanced directive. She does not have negative power of gas and oil checker for health. I discussed with patient, her and daughter present in the room. After discussion of benefits/risks procedures involved with full code, DNR CC arrest and DNR CC, the patient at first not sure as it was not discussed before by PCP or among family members. Later on she said full code. Patient does want artificial life support including intubation, tube feed, ventilator and/chest compression, central venous catheter, vasopressor and DC shock if needed Total time spent in [id number] encounter in discussion of advanced directive 17 minutes. Laboratory Results 11/09/22 12:56: WBC 6.3, RBC 4.10 L, Hgb 12.4, Hct 37.9, MCV 92.4, MCH 30.2, MCHC 32.7, RDW Std Deviation 46.2 H, RDW Coeff of Britta 13.8, Plt Count 108 L, MPV 14.7 H, Immature Gran % (Auto) 0.200, Neut % (Auto) 70.9 H, Lymph % (Auto) 17.7 L, [place] % (Auto) 9.7, Eos % (Auto) 1.0, Baso % (Auto) 0.5, Absolute Neuts (auto) 4.4, Absolute Lymphs (auto) 1.11, Nucleated RBC % 0, PT 13.4, INR 1.0, APTT 32.5, Sodium 133 L, Potassium 3.7, Chloride 98, Carbon Dioxide 30.0, Anion Gap 5, BUN 13, Creatinine 0.68, Estim Creat Clear Calc 59.72, Est GFR (MDRD) Af Amer 113, Est GFR (MDRD) Non-Af 93, BUN/Creatinine Ratio 19.1, Glucose 119 H, Calcium 9.2, Troponin I High Sens 420 H* 11/09/22 19:18: Troponin I High Sens 848 H* Clinical Impression(s) from Imaging Studies Chest X-Ray 11/09/22 13:14 IMPRESSION: Minimal degree of dextroscoliosis. Charges/Coding Visit Charges Inpatient E&M: 58994 Init Hosp L3 Procedures Hospitalists Procedures: 35618 Advncd Care Plan 30 Min
--- NOTE | 2022-11-09 18:32 | EKG12_ITS ---
Test Reason : ADMIT Blood Pressure : / mmHG Vent. Rate : 080 BPM Atrial Rate : 080 BPM P-R Int : 136 ms QRS Dur : 068 ms QT Int : 350 ms P-R-T Axes : 069 044 033 degrees QTc Int : 403 ms Sinus rhythm with Premature atrial complexes Septal infarct , age undetermined Abnormal ECG When compared with ECG of 09-NOV-2022 14:02, MANUAL COMPARISON REQUIRED, DATA IS UNCONFIRMED Confirmed by UDAY MENDEZ, JULIANE ([id number]), order editor GELA ROSE ([id number]) on 11/13/2022 1:35:55 PM Referred By: Confirmed By:JULIANE FRYE MD
[2022-11-09] MEDS: Heparin Injection (Vial) 5,000 UNIT/ML VIAL 3000 UNIT IV (19:59)
[2022-11-09] MEDS: HEPARIN/D5w 25,000 UNITS 25,000 UNITS/250 ML IV.SOLN. 5.5 UNITS CONT INF (20:01)
[2022-11-09 20:17] LABS: Troponin-I HS 848 pg/mL (3.0-54.0)
[2022-11-09 22:55] LABS: Troponin-I HS 849 pg/mL (3.0-54.0)
[2022-11-10 01:40] VITALS: BP 100/46; PULSE 65; RESP 14; TEMP 36.2; O2SAT 97
[2022-11-10 02:09] LABS: Absolute Lymphocyte Count 1.86 X10^3/uL (0.83-4.51); Absolute Neutrophil Count 3.7 X10^3/uL (2.0-7.7); Basophil# 0.03 X10^3/uL; Basophil% 0.5 % (0-1); Eosinophil# 0.11 X10^3/uL; Eosinophils% 1.7 % (0-5); Hematocrit 35.8 % (37-47); Hemoglobin 11.6 g/dL (12.0-15.0); Lymphocyte # 1.86 X10^3/ul (0.83-4.51); Lymphocyte % 29.3 % (19-41); Mean Corp Hgb Conc 32.4 g/dL (32-36); Mean Corpuscular Hgb 29.7 pg (27.0-32.0); Mean Corpuscular Volume 91.8 fL (81-99); Monocyte# 0.68 X10^3/uL; Monocyte% 10.7 % (0-10); NRBC Flagged by Analyzer 0 % (0-5); Neutrophil # 3.65 X10^3/uL (2.7-7.7); Neutrophil % 57.6 % (47-70); POSITIVE MORPHOLOGY YES; Platelet Count 109 K/mm3 (150-450); RBC Distribution Width CV 13.5 % (11.6-14.6); RBC Distribution Width SD 45.1 fl (35.1-43.9); White Blood Count 6.3 K/mm3 (4.4-11.0)
[2022-11-10 02:16] LABS: Differential Indicated SCAN CRITERIA MET; Partial Thromboplast Time 63.9 Seconds (24.1-36.2)
[2022-11-10 02:38] LABS: Differential Comment SCANNED
[2022-11-10 02:39] LABS: Anion Gap 6 (5-15); BUN 12 mg/dL (7-18); BUN/Creat Ratio 18.8 RATIO (10-20); Calcium,Total 8.9 mg/dL (8.5-10.1); Chloride 104 mmol/L (98-107); Cholesterol 317 mg/dL (200); Creatinine, Serum 0.64 mg/dL (0.55-1.02); EST Glomerular Filtration Rate 100 mL/min (>60); Est Glom Filt Rate - Afr Amer 121 mL/min (>60); Estimated Creatinine Clearance 68.22 ml/min; Glucose 98 mg/dL (74-106); High Density Lipoprotein 41 mg/dL; Magnesium 2.2 mg/dL (1.6-2.6); Potassium 3.6 mmol/L (3.5-5.1); Sodium Level 136 mmol/L (136-145); Thyroid Stim Hormone (TSH) 8.99 uIU/mL (0.358-3.74); Triglycerides 98 mg/dL; Very Low Density Lipoprotein 20 mg/dL (5-40)
[2022-11-10 02:42] LABS: Troponin-I HS 767 pg/mL (3.0-54.0)
[2022-11-10 03:39] VITALS: BMI 47.6
[2022-11-10 07:02] VITALS: O2SAT 99
[2022-11-10 08:30] VITALS: BP 111/56; PULSE 82; RESP 14; TEMP 36.6; O2SAT 97
[2022-11-10] MEDS: Aspirin E.C. 81 MG Tablet PO (08:36)
[2022-11-10 08:58] LABS: Partial Thromboplast Time 52.4 Seconds (24.1-36.2)
[2022-11-10 15:15] VITALS: BP 101/48; PULSE 65; RESP 14; TEMP 36.6; O2SAT 98
[2022-11-10 15:22] VITALS: BMI 21.8
--- NOTE | 2022-11-10 15:23 | NURSING ---
prevous wt on admit was wrong
[2022-11-10 15:51] LABS: Partial Thromboplast Time 54.8 Seconds (24.1-36.2)
--- NOTE | 2022-11-10 16:19 | NURSING ---
called Nurse Bao at [facility] reported that her ptt 54.8 and her wt 97.3 next ptt in 6 h. she also refused lopressor x 2 doses
--- NOTE | 2022-11-15 15:07 | PCM.DC.SUM ---
Providers Date of Admission: 11/09/22 Date of Discharge: 11/10/22 Primary Care Physician: Dr. Taj Matamoros, Consultations 11/09/22 18:32 Consult: Cardiology Routine Consulting Provider: Clemencia Nelson Reason for Consult: Chest Pain EMERGENT Consult: No MD Notified: Yes Date Notified: 11/09/22 Time Notified: 18:17 Method of Notification: Verbal Reason For Visit: NSTEMI Diagnosis Discharge Diagnosis (1) Non-STEMI (non-ST elevated myocardial infarction): Status: Acute Code(s): I21.4 - Non-ST elevation (NSTEMI) myocardial infarction Plan #1 Non-STEMI #2 Severe multi vessel coronary artery disease-LAD, mid circumflex coronary artery, right coronary artery #3 hyperlipidemia #4 severe aortic valve insufficiency Medications at Discharge Home Medications capsicum (cayenne) 447 mg capsule 475 mg PO DAILY SUPPLEMENT 11/09/22 chlorophyll copper complex 10 mg tablet 40 mg PO BID 11/09/22 multivitamin (Daily Multi-Vitamin tablet) 1 tab PO DAILY HEALTH MAINTENANCE 11/09/22 omega-3 fatty acids-fish oil 684 mg-1,200 mg capsule,delayed release 1 cap PO DAILY SUPPLEMENT 11/09/22 Hospital Course Operations None Procedures 2-D Echocardiogram and Cardiac catheterization Summary of Care Provided Minutes Spent on Discharge: 31 Hospital Course: This 62-year-old white female was seen in the emergency room at [facility] with complaints of chest discomfort which she described as a squeezing sensation intermittently over the past 2 months. She called her PCP and he encouraged her to come to the ER for evaluation. Workup in the emergency room included labs which showed an elevated troponin, patient CBC was unremarkable, chemistry profile was unremarkable. Patient's EKG did not show evidence of acute ischemic changes, there is noted to be evidence of a septal infarct age undetermined. Patient was taken to the User Support Analyst Supervisor after interventional cardiology evaluated the patient, there was noted to be severe multivessel disease, patient was admitted to PCU and arrangements were made for the patient to be transferred to a tertiary hospital for evaluation for possible bypass versus high risk stenting. On 11/10/2022, patient was seen and examined: On on examination she appeared in good health and spirits, she does not appear to be in any distress. Vital signs as documented. Skin warm and dry and without overt rashes. Neck without JVD, thyroid appears normal, trachea is midline, neck is supple. Lungs clear, normal air movement was noted. Heart exam notable for regular rhythm, normal sounds and absence of murmurs, rubs or gallops. Abdomen unremarkable and without evidence of organomegaly, masses, or abdominal aortic enlargement, bowel sounds are present in all 4 quadrants, no abdominal tenderness was noted. Extremities nonedematous, no cyanosis was noted, no clubbing was noted. Neuro: Cranial nerves II through XII are grossly intact, no focal motor deficits were noted, sensation to light touch and pinprick is intact, motor exam 5/5 throughout. Psych: Patient is alert and oriented x3, she does not appear anxious or depressed, she does not appear agitated. Patient was transferred to [facility] on 11/29 in stable condition for further care. Weight / BMI Weight Weight: 44.1 kg Body Mass Index (BMI) 21.8 ABG / Lab / Microbiology Data 11/10/22 01:56 11/10/22 01:56 Meaningful Use Info Meaningful Use Diagnoses (Choose all that apply): AMI AMI/Post PCI/Angioplasty Aspirin given w/in 24hrs of arrival?: Yes ASA at discharge?: Yes Antiplatelet Therapy at Discharge:: No Reason Antiplatelet Therapy not ordered:: Transferred for intervention Statins at discharge?: Yes Guillermo/ARB at discharge?: No Reason Guillermo/ARB not ordered:: Not indicated Beta Narcisa at discharge?: Yes Done w/ Acute [place] measure.: Yes Documented LVEF (%): 45 Discharge Plan Admission Admit Date/Time: 11/09/22 18:13 Attending Provider: Elliot Mcallister Primary Care Provider: Taj Matamoros Consulting Providers: Clemencia Nelson; Luis Haro Discharge Orders/Prescriptions Prescriptions: No Action capsicum (cayenne) 447 mg capsule 475 mg PO DAILY Patient Comments: PT TAKES OTC SUPPLEMENT ONCE DAILY multivitamin [Daily Multi-Vitamin] Tablet 1 tab PO DAILY chlorophyll copper complex 10 mg tablet 40 mg PO BID Patient Comments: PT TAKES AN OTC CHLOROPHYLL SUPPLEMENT TWICE DAILY omega-3 fatty acids-fish oil 684-1,200 mg capsule,delayed release(DR/EC) 1 cap PO DAILY Patient Comments: PT TAKES OTC OMEGA SUPPLEMENT ONCE DAILY Referrals / Follow Up: Taj Matamoros DO [Primary Care Provider] - Disposition Disposition (needs filled in before D/C Order can be placed): Acute Care Hospital Charges/Coding Visit Charges Inpatient E&M: 56833 Disch Hosp >30min
== END 2022-11-10 15:39 | disposition short-term general hospital (02) | DRG 282 ==
LOC: ED 13:29 → PCU 18:26
PROVIDERS: Physician Assistant; Admitting Provider Internal Medicine; Emergency Provider Emergency Medicine; PCP Family Medicine; Visit Provider Internal Medicine
DX: I21.4 Non-ST elevation (NSTEMI) myocardial infarction (principal); E78.5 Hyperlipidemia, unspecified; I25.110 Atherosclerotic heart disease of native coronary artery with unstable angina pectoris; F41.9 Anxiety disorder, unspecified; I35.1 Nonrheumatic aortic (valve) insufficiency; R73.9 Hyperglycemia, unspecified; Z79.899 Other long term (current) drug therapy
CPT/HCPCS: 36415; 71045; 80048; 80061; 83036; 83735; 84100; 84443; 84484; 85025; 85610; 85730; 93005; 93308; 93454; 94668; 99285; J7030; J7040; A4216; C1769; C1894

== ENCOUNTER → 2023-05-28 | Outpatient (CLI) | payer SELFPAY ==
[2023-05-28 12:47] LABS: AST(SGOT) 31 U/L (15-37); Alanine Aminotransfer ALT/SGPT 75 U/L (13-56); Albumin, Serum 3.7 g/dL (3.2-5.0); Alkaline Phosphatase 132 U/L (45-117); Bilirubin, Direct 0.11 mg/dL (0.00-0.30); Cholesterol 434 mg/dL (200); Globulin 3.9 g/dL (2.2-4.2); High Density Lipoprotein 65 mg/dL; Protein, Total 7.6 g/dL (6.4-8.2); Triglycerides 109 mg/dL; Very Low Density Lipoprotein 22 mg/dL (5-40)
[2023-05-28 14:35] LABS: Thyroid Stim Hormone (TSH) 2.06 uIU/mL (0.358-3.74)
== END | disposition home or self-care (01) ==
PROVIDERS: PCP Family Medicine; Referring Provider Physician Assistant Medical; Visit Provider Physician Assistant Medical
DX: E78.5 Hyperlipidemia, unspecified (principal); E03.9 Hypothyroidism, unspecified
CPT/HCPCS: 36415; 80061; 80076; 84443

== ENCOUNTER → 2023-07-10 | Outpatient (CLI) | payer SELFPAY ==
--- NOTE | 2023-07-10 09:45 | ECHOD_ITS ---
Reason For Study: PROSTHETIC HEART VALVE (AORTIC) Procedure This was a 2D Doppler, Color Flow transthoracic echocardiogram. Exam performed in department. Left Ventricle Normal LV size. The left ventricular ejection fraction is 65 %. No regional wall motion abnormalities noted. Right Ventricle Normal RV size. Normal systolic function. Atria Normal left atrium. Normal right atrium. Probable chiari network. Mitral Valve Bileaflet diffuse mitral valve thickening. Mild (1+) eccentric mitral valve insufficiency. Tricuspid Valve Normal tricuspid valve. Mild (1+) tricuspid valve insufficiency. Pulmonary artery systolic pressure is 28 mmHg. Aortic Valve Peak aortic valve gradient 17 mmHg. Mean aortic valve gradient 11 mmHg. Bioprosthetic aortic valve. Pulmonic Valve Normal pulmonic valve. Great Vessels Normal aortic root. The pulmonary artery is normal size. Inferior vena cava collapse with respiration. Pericardium/Pleural No pericardial effusion. MMode/2D Measurements & Calculations LVIDd: 4.2 cm IVSd: 0.97 cm Ao root diam: 3.3 cm LVIDs: 2.3 cm LVPWd: 0.96 cm RVDd: 3.4 cm FS: 45.3 % LAV(MOD-bp): 52.9 ml LVAd ap4: 19.1 cm2 LVAd ap2: 22.0 cm2 LAV(MOD-bp) Indexed: 39.9 ml/m2 LVLd ap4: 6.0 cm LVLd ap2: 6.7 cm LAV(MOD-sp2): 53.4 ml EDV(MOD-sp4): 52.6 ml EDV(MOD-sp2): 60.7 ml LAV(MOD-sp4): 53.4 ml EDV(sp4-el): 51.5 ml EDV(sp2-el): 61.4 ml LVAs ap4: 10.2 cm2 LVAs ap2: 11.2 cm2 LVLs ap4: 4.7 cm LVLs ap2: 5.2 cm ESV(MOD-sp4): 18.7 ml ESV(MOD-sp2): 19.6 ml ESV(sp4-el): 18.9 ml ESV(sp2-el): 20.4 ml EF(MOD-sp4): 64.5 % EF(MOD-sp2): 67.6 % EF(sp4-el): 63.4 % SV(MOD-sp4): 33.9 ml SV(MOD-sp2): 41.0 ml SV(sp4-el): 32.7 ml LA dimension(2D): 4.0 cm LA A4 area: 18.5 cm2 RA A4 area: 11.9 cm2 TAPSE: 1.5 cm Time Measurements MV dec time: 0.17 sec Doppler Measurements & Calculations MV E max donovan: 112.9 cm/sec Lat Peak E' Donovan: 9.4 cm/sec Med Peak E' Donovan: 6.5 cm/sec MV A max donovan: 72.1 cm/sec E/E' lat: 12.1 E/E' med: 17.3 MV E/A: 1.6 MV V2 max: 117.1 cm/sec MV P1/2t max donovan: 103.3 cm/sec Ao V2 max: 207.9 cm/sec MV max P.5 mmHg MV P1/2t: 68.5 msec Ao max P.3 mmHg MV V2 mean: 56.8 cm/sec MV dec slope: 441.9 cm/sec2 Ao V2 mean: 155.6 cm/sec MV mean P.6 mmHg Ao mean P.8 mmHg MV V2 VTI: 30.0 cm MVA(P1/2t): 3.2 cm2 Ao V2 VTI: 49.3 cm AV (velocity ratio): 0.75 LV V1 max: 180.7 cm/sec MR max donovan: 525.4 cm/sec PA V2 max: 74.9 cm/sec LV V1 max P.1 mmHg MR max P.4 mmHg PA V2 mean: 54.1 cm/sec LV V1 mean P.1 mmHg LV V1 mean: 138.2 cm/sec LV V1 VTI: 36.9 cm TR max donovan: 246.1 cm/sec TR max P.2 mmHg ECHO/Echo Complete Interpretation Summary The left ventricular ejection fraction is 65 %. Bioprosthetic aortic valve. Mean aortic valve gradient 11 mmHg. Mild (1+) eccentric mitral valve insufficiency. Normal LV size. Ordering Physician: Rubi Acevedo Referring Physician: Taj Matamoros Performed By: Kassidy Prado RDCS, RVT
[2023-07-10 11:43] LABS: Cholesterol 366 mg/dL (200); High Density Lipoprotein 63 mg/dL; Triglycerides 124 mg/dL; Very Low Density Lipoprotein 25 mg/dL (5-40)
== END | disposition home or self-care (01) ==
PROVIDERS: PCP Family Medicine; Referring Provider Physician Assistant Medical; Visit Provider Physician Assistant Medical
DX: I25.10 Atherosclerotic heart disease of native coronary artery without angina pectoris (principal); E78.5 Hyperlipidemia, unspecified; Z95.2 Presence of prosthetic heart valve
CPT/HCPCS: 36415; 80061; 93306

== ENCOUNTER → 2025-02-19 | Outpatient (CLI) | payer SELFPAY ==
[2025-02-19 11:01] LABS: AST(SGOT) 29 U/L (<=31); Alanine Aminotransfer ALT/SGPT 25 U/L (<=34); Albumin, Serum 4.0 g/dL (3.4-4.8); Alkaline Phosphatase 95 U/L (35-104); Bilirubin, Direct 0.27 mg/dL (0.00-0.30); Cholesterol 193 mg/dL (<=200); Globulin 2.8 g/dL (2.2-4.2); Low Density Lipoprotein Calc. 113 mg/dL; Triglycerides 63 mg/dL; Very Low Density Lipoprotein 13 mg/dL (5-40); cholesterol:hdl ratio screen 2.81
== END | disposition home or self-care (01) ==
PROVIDERS: PCP Family Medicine; Referring Provider Internal Medicine Cardiovascular Disease; Visit Provider Internal Medicine Cardiovascular Disease
DX: I25.10 Atherosclerotic heart disease of native coronary artery without angina pectoris (principal); E78.5 Hyperlipidemia, unspecified
CPT/HCPCS: 36415; 80061; 80076